=== PATIENT | female | born 1995 | race Hispanic/Latino ===

== ENCOUNTER 2020-10-15 17:43 | Emergency (ER) | payer OTHER ==
[~2020-10-15] VITALS: Ht 170.2 cm; Wt 76.7 kg
[2020-10-15 20:09] LABS: BASO # 0.1 10^3/uL (0.0-0.2); EOS # 0.1 10^3/uL (0.0-0.5); EOS % 0.9 % (0.0-3.0); HEMATOCRIT 28.1 % (36.0-47.0); HEMOGLOBIN 7.3 g/dl (12.0-15.5); LYMPH # 2.4 10^3/uL (1.5-5.0); LYMPH % 30.2 % (24.0-44.0); MEAN CORPUSCULAR HEMOGLOBIN 15.7 pg (27.0-33.0); MEAN CORPUSCULAR VOLUME 60.4 fl (80.0-96.0); MONO # 0.5 10^3/uL (0.0-0.8); MONO % 6.1 % (2.0-8.0); NEUTROPHILS # 4.8 10^3/uL (1.5-8.5); NEUTROPHILS % 61.5 % (36.0-66.0); PLATELET COUNT, AUTOMATED 368 10^3/uL (150-450); RED BLOOD COUNT 4.65 10^6/uL (4.00-5.40); WHITE BLOOD COUNT 7.8 10^3/uL (4.0-10.0)
[2020-10-15 20:18] LABS: BLOOD UREA NITROGEN 13 MG/DL (7-18); CALCIUM LEVEL 9.3 MG/DL (8.5-10.1); CARBON DIOXIDE LEVEL 23 MEQ/L (21-32); CHLORIDE LEVEL 108 MEQ/L (98-107); CREATININE FOR GFR 0.56 MG/DL (0.55-1.30); GLOMERULAR FILTRATION RATE > 60.0 (>60); GLUCOSE, FASTING 81 MG/DL (70-100); HCG, SERUM QUANTITATIVE 609 MIU/ML; POTASSIUM SERUM 3.6 MEQ/L (3.5-5.1); SODIUM LEVEL 141 MEQ/L (136-145)
[2020-10-15 22:14] LABS: RSV AMPLIFICATION NEGATIVE (NEGATIVE)
--- NOTE | 2020-10-15 22:34 | REPVR ---
PROCEDURE INFORMATION: Exam: US First Trimester, Transabdominal Exam date and time: 10/15/2020 9:53 PM Age: 25 years old Clinical indication: complicated by abdominal or pelvic pain; Left lower quadrant; First trimester; Gestational age or lmp: 08/23/20; ; Additional info: Llq pain TECHNIQUE: Imaging protocol: Real-time transabdominal obstetrical ultrasound of the maternal pelvis and a first trimester , less than 14 weeks 0 days, with image documentation. COMPARISON: No relevant prior studies available. FINDINGS: Gestation: No intrauterine . Embryonic/ heart rate: No identified gestation. Extra-embryonic membranes/Placenta: No identified gestation. Amniotic fluid: No identified gestation. BIOMETRY: Gestational age (AUA): No identified gestational. MATERNAL: Uterus: 9.5 x 5.7 x 6.5 cm uterus. Heterogeneous right posterior uterus with hypoechoic area measuring 2.8 cm, likely a fibroid. Borderline thickened heterogeneous uterine endometrium measuring 1.7 cm. Cervix: Unremarkable. Right adnexa: Unremarkable right ovary and adnexal structures. Left adnexa: Unremarkable left ovary and adnexal structures. Intraperitoneal space: No free fluid. IMPRESSION: 1. No acute abnormality. No intra or extra uterine gestation, question too early. 2. Probable myometrial uterine fibroid measuring 2.8 cm. 3. Heterogeneous right posterior uterus hypoechoic area measuring 2.8 cm, likely a fibroid. Electronically signed by: Goldy Jacobson On 10/15/2020 22:34:45 PM
[2020-10-15 22:50] LABS: IRON (FE) 92 UG/DL (50-170); PERCENT SATURATION 22.8 % (13.2-45.0); TOTAL IRON BINDING CAPACITY 404 UG/DL (250-450)
[2020-10-15 23:51] VITALS: BP 132/91
== END 2020-10-15 23:59 | disposition home or self-care (01) ==
LOC: M ED 17:43 → EDBD 17:43 → M ED 23:59
DX: O99.891 Other specified diseases and conditions complicating pregnancy (principal); R10.32 Left lower quadrant pain; O99.011 Anemia complicating pregnancy, first trimester; O99.841 Bariatric surgery status complicating pregnancy, first trimester; Z3A.01 Less than 8 weeks gestation of pregnancy

== ENCOUNTER 2020-10-17 18:09 | Emergency (ER) | payer OTHER ==
[~2020-10-17] VITALS: Ht 170.2 cm; Wt 98.3 kg
[2020-10-17 21:44] LABS: BASO # 0.1 10^3/uL (0.0-0.2); BASO % 0.8 % (0.0-1.0); EOS # 0.1 10^3/uL (0.0-0.5); EOS % 1.4 % (0.0-3.0); HEMATOCRIT 27.5 % (36.0-47.0); HEMOGLOBIN 7.1 g/dl (12.0-15.5); LYMPH # 2.5 10^3/uL (1.5-5.0); LYMPH % 38.2 % (24.0-44.0); MEAN CORPUSCULAR HEMOGLOBIN 15.8 pg (27.0-33.0); MEAN CORPUSCULAR HGB CONC 25.8 g/dl (32.0-36.5); MEAN CORPUSCULAR VOLUME 61.1 fl (80.0-96.0); MONO # 0.4 10^3/uL (0.0-0.8); MONO % 5.5 % (2.0-8.0); NEUTROPHILS # 3.5 10^3/uL (1.5-8.5); NEUTROPHILS % 53.8 % (36.0-66.0); PLATELET COUNT, AUTOMATED 329 10^3/uL (150-450); WHITE BLOOD COUNT 6.6 10^3/uL (4.0-10.0)
[2020-10-17 22:05] LABS: BLOOD UREA NITROGEN 10 MG/DL (7-18); CALCIUM LEVEL 9.2 MG/DL (8.5-10.1); CARBON DIOXIDE LEVEL 24 MEQ/L (21-32); CHLORIDE LEVEL 111 MEQ/L (98-107); CREATININE FOR GFR 0.58 MG/DL (0.55-1.30); GLOMERULAR FILTRATION RATE > 60.0 (>60); GLUCOSE, FASTING 83 MG/DL (70-100); HCG, SERUM QUANTITATIVE 709 MIU/ML; POTASSIUM SERUM 3.6 MEQ/L (3.5-5.1); SODIUM LEVEL 140 MEQ/L (136-145)
[2020-10-18] VITALS (7 sets, daily range): BP systolic 101–111; BP diastolic 56–70
--- NOTE | 2020-10-18 00:23 | REPVR ---
PROCEDURE INFORMATION: Exam: US First Trimester, Transabdominal and US , Transvaginal Exam date and time: 10/17/2020 11:46 PM Age: 25 years old Clinical indication: Abnormal findings; Abnormal lab test; Change in hcg; ; Additional info: Missed ab, obgyn wants it TECHNIQUE: Imaging protocol: Real-time transabdominal obstetrical ultrasound of the maternal pelvis and a first trimester , less than 14 weeks 0 days, with image documentation. Transvaginal imaging was used for better evaluation of the fetus, adnexa, and/or cervix. COMPARISON: 1ST TRIMESTER US 2020-10-15 21:31 FINDINGS: Gestation: Heterogeneous thickened endometrium without gestational sac. Embryonic/ heart rate: No visible gestational. Extra-embryonic membranes/Placenta: No visible gestational. Amniotic fluid: No visible gestational. BIOMETRY: Gestational age (AUA): No visible gestational. MATERNAL: Uterus: Anteverted 9.3 x 5.4 x 6.5 cm uterus. Again seen is a possibly uterine fibroid. Heterogeneous endometrium measures 1.9 cm. Cervix: Unremarkable. Right adnexa: Unremarkable. Left adnexa: Unremarkable. Intraperitoneal space: No intraperitoneal free fluid. IMPRESSION: 1. No change. 2. Heterogeneous thickened endometrium without gestational sac. Electronically signed by: Goldy Jacobson On 10/18/2020 00:23:02 AM
== END 2020-10-18 08:21 | disposition home or self-care (01) ==
LOC: M ED 18:09
DX: O99.011 Anemia complicating pregnancy, first trimester (principal); O99.841 Bariatric surgery status complicating pregnancy, first trimester; Z3A.01 Less than 8 weeks gestation of pregnancy
CPT/HCPCS: 36430; 76801; 76817; 80048; 81001; 84702; 85025; 86850; 86900; 86901; 86920; 93976; 99291; P9016

== ENCOUNTER → 2020-10-19 | Outpatient (CLI) | payer OTHER ==
[2020-10-19 12:28] LABS: HEMOGLOBIN 9.3 g/dl (12.0-15.5); MEAN CORPUSCULAR HEMOGLOBIN 18.1 pg (27.0-33.0); MEAN CORPUSCULAR HGB CONC 27.4 g/dl (32.0-36.5); MEAN CORPUSCULAR VOLUME 66.3 fl (80.0-96.0); PLATELET COUNT, AUTOMATED 292 10^3/uL (150-450); RED BLOOD COUNT 5.13 10^6/uL (4.00-5.40); WHITE BLOOD COUNT 6.5 10^3/uL (4.0-10.0)
== END ==
LOC: M LAB 11:19
PROVIDERS: ATTEND Obstetrics & Gynecology
DX: D64.9 Anemia, unspecified (principal); Z32.00 Encounter for pregnancy test, result unknown

== ENCOUNTER 2020-10-20 07:56 | Emergency (ER) | payer OTHER ==
[~2020-10-20] VITALS: Ht 170.2 cm; Wt 77.3 kg
[2020-10-20] MEDS ORDERED: METHOTREXATE 50MG/2ML VIAL (J9260 PER 50MG) IM ONE ×2 (08:15→08:20)
[2020-10-20 09:14] LABS: ALBUMIN 3.5 GM/DL (3.2-5.2); ALT/SGPT 16 U/L (12-78); BILIRUBIN,TOTAL 0.6 MG/DL (0.2-1.0); BLOOD UREA NITROGEN 8 MG/DL (7-18); CALCIUM LEVEL 9.1 MG/DL (8.5-10.1); CARBON DIOXIDE LEVEL 27 MEQ/L (21-32); CHLORIDE LEVEL 109 MEQ/L (98-107); CREATININE FOR GFR 0.53 MG/DL (0.55-1.30); GLOMERULAR FILTRATION RATE > 60.0 (>60); GLUCOSE, FASTING 86 MG/DL (70-100); POTASSIUM SERUM 3.8 MEQ/L (3.5-5.1); SODIUM LEVEL 140 MEQ/L (136-145); TOTAL PROTEIN 6.9 GM/DL (6.4-8.2)
[2020-10-20 12:17] VITALS: BP 114/64
--- NOTE | 2020-10-20 12:32 | HPEPDOC ---
General Date of Admission Vital Signs Label Value Date Time Patient Temperature 98.4 degrees F 10/20/20 0759 Temperature Source Temporal 10/20/20 0759 Pulse 100 10/20/20 0759 Respiratory Rate 18 bpm 10/20/20 0759 Blood Pressure Assessment 129/69 (89) 10/20/20 0759 Location Left Arm Source Automatic Cuff (NIBP) Position Sitting Bedside Pulse Oximetry 100 % 10/20/20 0759 Item Value Date Time Sodium Level 140 MEQ/L 10/20/20 0834 Potassium Level 3.8 MEQ/L 10/20/20 0834 Chloride Level 109 MEQ/L H 10/20/20 0834 Carbon Dioxide Level 27 MEQ/L 10/20/20 0834 Anion Gap 4 MEQ/L L 10/20/20 0834 Blood Urea Nitrogen 8 MG/DL 10/20/20 0834 Creatinine 0.53 MG/DL L 10/20/20 0834 Glomerular Filtration Rate > 60.0 10/20/20 0834 Fasting Glucose 86 MG/DL 10/20/20 0834 Calcium Level 9.1 MG/DL 10/20/20 0834 Total Bilirubin 0.6 MG/DL 10/20/20 0834 Aspartate Amino Transf (AST/SGOT) 11 U/L 10/20/20 0834 Alanine Aminotransferase (ALT/SGPT) 16 U/L 10/20/20 0834 Alkaline Phosphatase 66 U/L 10/20/20 0834 Total Protein 6.9 GM/DL 10/20/20 0834 Albumin 3.5 GM/DL 10/20/20 0834 Albumin/Globulin Ratio 1.0 L 10/20/20 0834 Date of Service: Oct 20, 2020 Attending Physician: Rashaad Landry MD Chief Complaint The patient is a 25-year-old female admitted with a reason for visit of Problem. Source: Patient Exam Limitations: No limitations Timing/Duration: Day(s) (24-48 hours) Severity: Other (asymptomatic) Associated Symptoms: Denies Symptoms History of Present Illness PATIENT 25 YO A 1 WITH SUGGESTED HISTORY OF ECTOPIC LOCATION UNKNOWN, WITH INAPPROPRIATE RISE OF QHCG AND NEGATIVE US . PATIENT DECLINED AT PRESENT LAPAROSCOPY HYSTEROSCOPY D AND C OR EVEN ENDOMETRIAL PIPELLE. PLAN IS METHOTREXATE Home Medications No Active Prescriptions or Reported Meds Allergies Coded Allergies: No Known Allergies (Unverified , 10/15/20) Past Medical History Medical History NON CONTRIBUTORY SURGICAL BYPASS SURGERY JUAN EN Y Surgical History JUAN EN Y D AND C Family History Significant Family History: Noncontributory Social History * Smoker: non-smoker Alcohol: Denies Drugs: denies Recent Travel/Sick Contacts: Denies: Recent travel, Recent sick contacts Psychosocial History: No pertinent psych hx A-FIB/CHADSVASC A-FIB History Current/History of A-Fib/PAF?: No Current PO Anticoag Therapy: No Vital Signs Vital Signs Date Time Temp Pulse Resp B/P (MAP) Pulse Ox O2 Delivery O2 Flow Rate FiO2 10/20/20 08:21 10/20/20 07:59 98.4 100 18 100 Room Air Laboratory Data Labs 24H Laboratory Tests 2 10/20/20 08:34: Anion Gap 4L, Glomerular Filtration Rate > 60.0, Calcium Level 9.1, Total Bilirubin 0.6, Aspartate Amino Transf (AST/SGOT) 11, Alanine Aminotransferase (ALT/SGPT) 16, Alkaline Phosphatase 66, Total Protein 6.9, Albumin 3.5, Albumin/Globulin Ratio 1.0L CBC/BMP Laboratory Tests 10/20/20 08:34 Problems (1) Ectopic Status: Acute Response to Treatment: Stable Discussed With: Meat Wrapper Problem Specific Plan: Consult Specialist (Devonte LANDRY MD) Plan / VTE VTE Prophylaxis Ordered?: No Plan Plan REVIEWED RISK BENEFIT METHOTREXATE OPTION FOLLOW UP DAY 4 AND DAY 7 FOR REDUCTION HCG IF NOT APPROPRIATE REDUCTION OFFER 1 MORE DOSE AFTER WHICH OPTION D AND C AND DIAGNOSTIC LAPAROSCOPY Disposition PATIENT DISCHARGED AFTER INJECTION TO FOLLOW UP OFFICE Diet: Continue Current Medications: Other Med: (METHROTREXATE PER PROTOCOL) Anticipated Discharge: Home Rashaad Landry MD Oct 20, 2020 12:28
== END 2020-10-20 12:19 | disposition home or self-care (01) ==
LOC: M ED 07:56
DX: O00.90 Unspecified ectopic pregnancy without intrauterine pregnancy (principal); Z79.899 Other long term (current) drug therapy
CPT/HCPCS: 36415; 80053; 96372; 99283; J9260

== ENCOUNTER → 2020-10-23 | Outpatient (CLI) | payer OTHER | LOC: M LAB 09:33 | PROVIDERS: ATTEND Obstetrics & Gynecology | DX: O00.80 Other ectopic pregnancy without intrauterine pregnancy (principal) ==

== ENCOUNTER → 2020-10-26 | Outpatient (CLI) | payer OTHER | LOC: M LAB 10:26 | PROVIDERS: ATTEND Obstetrics & Gynecology | DX: O02.81 Inappropriate change in quantitative human chorionic gonadotropin (hCG) in early pregnancy (principal) ==